=== PATIENT | female | born 1935 | race Caucasian/White ===

== ENCOUNTER 2017-03-02 14:13 | Emergency (ER) | payer MEDICARE ==
[2017-03-02] MEDS ORDERED: OXYCODONE-ACETAMINOPHEN 5-325 MG TABLET PO ONE (16:29)
--- NOTE | 2017-03-02 16:35 | ER Document Report ---
HPI - HPI Patient complains to provider of: Vaginal pain Onset: Other - Chronic, worse since yesterday Onset/Duration: Persistent Quality of pain: Sharp Pain Level: 5 Context: Patient states that she has had a history of intermittent vaginal pain. Patient has seen her primary doctor where she lives state for this problem and has seen a local [facility] doctor. Patient is here visiting from [place]. Patient states that she has pain to her labia. Patient has been treated recently with Premarin cream. Patient has been told that she has had some atrophic changes that they attribute to her age. Patient denies any concerns about STDs. Patient does state she had a herpes culture that was negative recently. Patient also states that her primary doctor has voiced some concern that she may have nerve pain to this area as well. Patient states pain is typical of vaginal pain that she has had in the past. Associated Symptoms: Other - Vaginal pain. denies: Fever Exacerbated by: Denies Relieved by: Denies Similar symptoms previously: Yes Recently seen / treated by doctor: Yes - ROS ROS below otherwise negative: Yes Systems Reviewed and Negative: Yes All other systems reviewed and negative - CONSTITUTIONAL Constitutional: DENIES: Fever, Chills - GASTROINTESTINAL Gastrointestinal: DENIES: Abdominal Pain, Nausea, Patient vomiting - URINARY Urinary: DENIES: Dysuria - REPRODUCTIVE Notes: Pain to labia - MUSCULOSKELETAL Musculoskeletal: DENIES: Extremity pain, Back Pain, Neck Pain - DERM Skin Color: Normal Skin Problems: None Past Medical History - General Information source: Patient, Relative - Social History Smoking Status: Never Smoker Frequency of alcohol use: Social Lives with: Spouse/Significant other Family History: Reviewed & Not Pertinent Patient has suicidal ideation: No Patient has homicidal ideation: No Neurological Medical History: Reports: Other - Neuropathy Renal/ Medical History: Denies: Hx Peritoneal Dialysis Past Surgical History: Reports: Hx Bowel Surgery Vertical Provider Document - CONSTITUTIONAL Agree With Documented VS: Yes Exam Limitations: No Limitations General Appearance: WD/WN, No Apparent Distress - INFECTION CONTROL TRAVEL OUTSIDE OF THE [place] IN LAST 30 DAYS: No - HEENT HEENT: Atraumatic, Normocephalic - NECK Neck: Normal Inspection - RESPIRATORY Respiratory: Breath Sounds Normal, No Respiratory Distress O2 Sat by Pulse Oximetry: 98 - CARDIOVASCULAR Cardiovascular: Regular Rate, Regular Rhythm - REPRODUCTIVE Female Genitalia: Abnormal Inspection Notes: Mild white cheesy discharge to perineum, patient with nontender ulceration to vaginal introitus - BACK Back: Normal Inspection. negative: CVA Tenderness-Right, CVA Tenderness-Left - MUSCULOSKELETAL/EXTREMETIES Musculoskeletal/Extremeties: PIERRE ROWLEY - NEURO Level of Consciousness: Awake, Alert, Appropriate Motor/Sensory: No Motor Deficit - DERM Integumentary: Warm, Dry Course - Re-evaluation Re-evalutation: 03/02/17 16:30 Patient with nontender ulceration, family states that patient did have an outpatient negative herpes culture recently. Patient denies any concern for any STD. Patient's tenderness to labia does not coincide with area of ulceration/skin tear to vaginal dryness. Daughter does state that there has been some concerns about possible nerve pain to this area. Patient's abdomen soft, nontender Patient with hormonal and age-related atrophic findings. Will plan to treat for possible yeast infection. Patient is currently on a topical Premarin cream as well to help with her symptoms. Patient encouraged to follow-up with her OB/ [facility] at home or locally with Dr. Blake for recheck. - Vital Signs Vital signs: Temp Pulse Resp BP Pulse Ox 97.5 F 78 18 143/80 H 98 03/02/17 14:23 03/02/17 14:23 03/02/17 14:23 03/02/17 14:23 03/02/17 14:23 Discharge - Discharge Clinical Impression: Vagina, candidiasis, Labial pain Condition: Stable Disposition: HOME, SELF-CARE Instructions: Oral Narcotic Medication ([facility]), Vaginal Yeast Infection ([facility]) Additional Instructions: Return immediately for any new or worsening symptoms Followup with your [facility] care provider, call tomorrow to make a followup appointment Prescriptions: Clotrimazole [Clotrimazole-7] 1 applic VG QHS #45 gm Oxycodone HCl/Acetaminophen [Percocet 5-325 mg Tablet] 1 tab PO ASDIR PRN #12 tablet PRN Reason: Referrals: HOLGER BLAKE MD [EMERITUS] - 03/05/17
[2017-03-02 16:50] VITALS: BP 147/71
== END 2017-03-02 16:50 | disposition home or self-care (01) ==
LOC: ER 14:13
DX: B37.3 Candidiasis of vulva and vagina (principal); R10.2 Pelvic and perineal pain
CPT/HCPCS: 99283; A9270